=== PATIENT | male | born 1965 | race Caucasian/White ===

== ENCOUNTER 2018-06-28 22:22 | Emergency (ER) | payer OTHER ==
[2018-06-28] MEDS ORDERED: NS 1,000 ML IV ONE (23:11)
--- NOTE | 2018-06-28 23:16 | EDPHY ---
General - History Smoking Status: Never smoked Time Seen by Provider: 06/28/18 23:06 Narrative: ED PA DICTATION I evaluated and participated in the management of the patient. I also evaluated the patient independently. My co-signature indicates that I have reviewed this chart and I agree with the findings and plan of care as documented. My personal H&P findings include: 52-year-old male with history of HIV presents with fever and tachycardia. Since he has been here he has received IV fluid, pain meds, Tylenol. He feels much better with IV fluids and his vital signs are now normal. We have not discovered any source of infection. I have offered him admission to the hospital, however he declines. He is able to return if he is worse in any way. I have explained that we have checked blood cultures and do not have the results back yet. He believes he can follow up with his primary care doctor in the next few days. I have given him strict return precautions. (Melody Bell) CHIEF COMPLAINT: Fever, back pain HISTORY OF PRESENT ILLNESS: Patient presents by private vehicle with complaints of fever and back pain. He states that he was moving some heavy objects and furniture on Friday. The following day he felt "like I tweaked my back," 1st noticing some left-sided back pain. It is left lower back pain. It has been constant duration. Later that day on Friday, he developed a fever and chills. He reports a T-max of a 103. He has been taking ibuprofen with intermittent relief. He has ongoing left flank pain with no abdominal pain. No cough. He does associate this with headache but has no neck pain or stiffness. No sore throat. No rash. No urinary complaints. He is HIV positive with reportedly undetectable viral load and normal cell counts recently. No other associated complaints or modifying factors. REVIEW OF SYSTEMS: 10 systems were reviewed and negative with the exception of the elements mentioned in the history of present illness. PCP: [facility] SPECIALISTS: Infectious disease, Dr. Kadeem Mcmanus in [place] PAST MEDICAL HISTORY: HIV, herpes, low testosterone, BPH PAST SURGICAL HISTORY: No recent surgical history SOCIAL HISTORY: Lives independently. FAMILY HISTORY: Noncontributory EXAMINATION: General Appearance: Alert, no distress. Conversing in full sentences. Well appearing. Head: normocephalic, atraumatic Eyes: Pupils equal and round, no conjunctival pallor or injection ENT, Mouth: Mucous membranes moist Neck: Normal inspection, supple, non-tender Respiratory: Lungs are clear to auscultation. No wheezing, rhonchi or crackles Cardiovascular: Regular rate and rhythm. No murmur. Gastrointestinal: Abdomen is soft and nontender. No tympany rigidity. No guarding. Moderate left CVA tenderness. No distension. No palpable mass Back: non-tender, no bony abnormalities Neurological: A&O, nonfocal, normal gait Skin: Warm and dry, no rash Extremities: Nontender, no pedal edema Psychiatric: Mood and affect normal DIFFERENTIAL DIAGNOSES: Including but not limited to sepsis, pneumonia, pyelonephritis, UTI, renal colic , ureteral colic, diverticulitis, colitis MDM: 11:15 p.m. Flank pain and fever with SIRS criteria met here by heart rate, temperature and respiratory rate. This was immediate recognize and lactic acid and blood cultures are pending. Despite his criteria, he is well-appearing and nontoxic. Laboratory studies are pending including urinalysis. I have added chest x- ray. IV fluid infusing. I have ordered pain medication and Tylenol. I discussed his SIRS criteria and presentation with Dr. Bell. 12:00 a.m. Urinalysis reveals mild protein urea. No leukocytosis or definite infection. Chest x-ray is unremarkable for infection. CBC does not reveal any leukocytosis. I have re-evaluated the patient this time. His pain is improved to 7/10. Temperature is down to 30 C. I discussed this with Dr. Bell, and we are in agreement that the patient warrants CT scan the abdomen pelvis given his history , vital signs and possibility of opportunistic infections. He has consented to the study. 1:00 a.m. Notified by radiologist Dr. Calvin. CT scan the abdomen pelvis does not reveal any acute abnormalities. I discussed this with Dr. Bell. She will re -evaluate the patient. 1:30 a.m. At this time Dr. Bell will assume care the patient. We have discussed his HPI examination as well as laboratory studies and CT findings. She will examine the patient and provide further care. Please see her note for final disposition. SUPERVISION: Patient was evaluated and examined in conjunction with my secondary supervising physician as documented. We have both examined the patient. (Bi Trejo) - Diagnostics Imaging Results: Imaging Impressions Abdomen CT 06/29/18 00:20 Impression: 1. No retroperitoneal inflammatory process or explanation for back pain and fever. Specifically, no evidence of hydronephrosis, perinephric fluid collection or paraspinal abscess. 2. Scattered sigmoid diverticula. 3. Degenerative disk and facet arthropathy at L4-L5 and L5-S1 contributing to at least moderate central canal narrowing at these 2 levels. The study was performed as an emergency on-call case and discussed by telephone with Bi Trejo PA-C, at 1:00 AM. The final interpretation is concordant with the original communication. - Objective Vital Signs: Initial Vital Signs Temperature (C) 101.8 F H 06/28/18 22:30 Heart Rate 102 H 06/28/18 22:30 Respiratory Rate 16 06/28/18 22:30 Blood Pressure 153/101 H 06/28/18 22:30 O2 Sat (%) 94 06/28/18 22:30 O2 Delivery Mode Room Air O2 (L/minute) 2 Allergies/Adverse Reactions: ceftazidime [From Tazidime] Allergy (Verified 06/28/18 22:27) dapsone Allergy (Verified 06/28/18 22:27) febuxostat [From Uloric] Allergy (Verified 06/28/18 22:27) gabapentin Allergy (Verified 06/28/18 22:27) Sulfa (Sulfonamide Antibiotics) Allergy (Verified 06/28/18 22:25) Home Medications: Medication Instructions Recorded Acyclovir 06/28/18 Descovy 200-25 mg Tablet 06/28/18 Intelence 06/28/18 Isentress 06/28/18 oxyCODONE CR 06/28/18 Laboratory Results: Laboratory Results 06/28/18 23:00 06/28/18 23:00 Microbiology Results: MICROBIOLOGY 06/28/18 23:30 Blood Blood Culture - Preliminary Gram Positive Cocci Clusters 06/28/18 23:30 Blood Blood Panel (PCR) - Final S.aureus Methicillin Suscept. 06/28/18 23:55 Blood Blood Culture - Preliminary Gram Positive Cocci Clusters Medications Given: Discontinued Medications Acetaminophen (Tylenol) 650 mg PO EDNOW ONE Stop: 06/28/18 23:21 Last Admin: 06/28/18 23:34 Dose: Not Given Sodium Chloride (Ns) 1,000 mls @ 0 mls/hr IV ONCE ONE; Wide Open PRN Reason: Protocol Stop: 06/28/18 23:12 Last Admin: 06/28/18 23:29 Dose: 1,000 mls Sodium Chloride (Ns) 1,000 mls @ 0 mls/hr IV ONCE ONE; Wide Open PRN Reason: Protocol Stop: 06/29/18 00:21 Last Admin: 06/29/18 00:20 Dose: 1,000 mls Morphine Sulfate (Morphine) 4 mg IVP EDNOW ONE Stop: 06/28/18 23:18 Last Admin: 06/28/18 23:29 Dose: 4 mg Departure - Departure Disposition: Home, Routine, Self-Care Clinical Impression: Flank pain, acute Low back strain Qualifiers: Encounter type: initial encounter Qualified Code(s): S39.012A - Strain of muscle, fascia and tendon of lower back, initial encounter Fever Qualifiers: Fever type: unspecified Qualified Code(s): R50.9 - Fever, unspecified Condition: Good Instructions: Muscle Strain (ED), Fever in Adults (ED), Lower Back Exercises ( ED) Additional Instructions: Please return to the emergency department if your worse in any way. We have not figured out the cause of your fever but I suspect there is a viral infection. I recommend that you follow up with your primary care doctor infectious disease in 1-2 days for recheck. We have sent blood cultures and if they returned positive we will call you at home. Referrals: Scott Peterson MD [[facility] Primary Care Provider] - As per Instructions
[2018-06-28 23:19] LABS: PLATELET COUNT 184 10^3/uL (150-400)
[2018-06-28] MEDS ORDERED: ACETAMINOPHEN 325 MG TAB PO ONE (23:20)
[2018-06-28 23:29] LABS: INR 0.99 (0.83-1.16); PROTIME(PATIENT) 13.3 SEC (12.0-15.0)
[2018-06-29] MEDS ORDERED: NS 1,000 ML IV ONE (00:20)
[2018-06-29] MEDS ORDERED: IOPAMIDOL (ISOVUE-300) 100 ML BTL ONE (00:29)
[2018-06-29 01:59] VITALS: BP 145/91
== END 2018-06-29 01:59 | disposition home or self-care (01) ==
DX: S39.012A Strain of muscle, fascia and tendon of lower back, initial encounter (principal); X50.0XXA Overexertion from strenuous movement or load, initial encounter; Y93.E9 Activity, other interior property and clothing maintenance; Y99.8 Other external cause status; R10.9 Unspecified abdominal pain; R50.9 Fever, unspecified; E86.9 Volume depletion, unspecified; Z21 Asymptomatic human immunodeficiency virus [HIV] infection status
CPT/HCPCS: 71046; 74177; 96361; 96374; 99285; J2270; Q9967

== ENCOUNTER 2018-06-29 15:45 | Inpatient (IN) | payer OTHER ==
--- NOTE | 2018-06-29 16:05 | EDPHY ---
General Time Seen by Provider: 06/29/18 15:56 Narrative: CHIEF COMPLAINT: "I was asked to come back" HISTORY OF PRESENT ILLNESS: Patient presents to the emergency department by private vehicle with complaints of "I was asked to come back." I evaluated the patient last night with complaints of left flank pain. At the time he presented tachycardic and febrile. We immediately commence a sepsis workup with blood cultures, lactic acid, laboratory studies, chest x-ray and urinalysis. Lactic acid was normal, as were his remainder laboratory studies. Chest x-ray is clear. There was unremarkable. His vital signs normalized throughout the course of his stay here. His back pain significantly improved. He was offered admission but declined. He was discharged home. He states that he felt well all day until around 11:00 p.m. When his left flank pain return. He did take is normal pain medication at noon today as well as ibuprofen. He has been afebrile. No chest pain. No cough. No sore throat. No urinary complaints. He was notified by our charge nurse to return here as his blood cultures did return with gram- positive cocci in clusters, MSSA. He states that he is feeling better today other than mild pain. HIV positive with last viral load and CD4 count taken 1 year ago. No other associated complaints 5 factors. REVIEW OF SYSTEMS: 10 systems were reviewed and negative with the exception of the elements mentioned in the history of present illness. PCP: [facility] SPECIALISTS: Infectious disease, Dr. Kadeem Murphy PAST MEDICAL HISTORY: HIV positive, herpes simplex, low testosterone PAST SURGICAL HISTORY: No recent surgical history SOCIAL HISTORY: Lives independently. Nonsmoker. Occasional marijuana use. FAMILY HISTORY: Noncontributory EXAMINATION: General Appearance: Alert, no distress. Well appearing. Ambulatory and conversing in full sentences. Head: normocephalic, atraumatic Eyes: Pupils equal and round, no conjunctival pallor or injection ENT, Mouth: Mucous membranes moist Neck: Normal inspection, supple, non-tender Respiratory: Lungs are clear to auscultation Cardiovascular: Regular rate and rhythm Gastrointestinal: Abdomen is soft and nontender no tympany rigidity. No guarding. No mass. Bowel sounds present all 4 quadrants Back: Mild left lower back soft tissue tenderness. No midline tenderness. No crepitus or deformity. Neurological: A&O, nonfocal, normal gait Skin: Warm and dry, no rash. No cellulitis, abscess or skin changes overlying the left flank pain. Extremities: Nontender, no pedal edema Psychiatric: Mood and affect normal DIFFERENTIAL DIAGNOSES: Including but not limited to bacteremia, sepsis, UTI, pyelonephritis, renal calculus, renal colic, ureteral colic MDM: 4:00 p.m. Bacteremia with 2 positive blood cultures with gram-positive cocci in clusters, MSSA. The patient does have mild flank pain but he is well-appearing. Nontoxic. Vital signs are within normal limits. He does not meet SIRS criteria. He has not been on antibiotics since discharge home after declining admission. I will consult Infectious Disease. I discussed with Dr. Ross. 4:15 p.m. Case discussed with Dr. Juan Jose Velásquez. We have reviewed the case, and he has requested Daptomycin 6mg/kg every 24 hours. I have ordered this and clarified with pharmacy. We will 1st obtain a urine culture as this is the last culture that needs to be obtained. He has no chest pain. No abdominal pain. No urine complaints but no sore throat, cough or congestion. 4:20 p.m. Case discussed with hospitalist Dr. Ramirez. He will be admitted to his service. He is admitted in stable condition. He has consented to admission. Urine culture will 1st obtain and then daptomycin initiated. 5:25 p.m. Patient being transported to his room in stable condition. Daptomycin not yet started due to pending urine sample collection. SUPERVISION: Patient was independently examined, but I discussed the case with my secondary supervising physician Dr. Ross CONSULTATION: Infectious disease, Dr. Velásquez - History Smoking Status: Never smoked - Objective Vital Signs: Initial Vital Signs Temperature (C) 98.1 F 06/29/18 15:48 Heart Rate 92 06/29/18 15:48 Respiratory Rate 18 06/29/18 15:48 Blood Pressure 148/87 H 06/29/18 15:48 O2 Sat (%) 93 06/29/18 15:48 O2 Delivery Mode Room Air Allergies/Adverse Reactions: ceftazidime [From Tazidime] Allergy (Verified 06/29/18 15:47) dapsone Allergy (Verified 06/29/18 15:47) febuxostat [From Uloric] Allergy (Verified 06/29/18 15:47) gabapentin Allergy (Verified 06/29/18 15:47) Sulfa (Sulfonamide Antibiotics) Allergy (Verified 06/29/18 15:47) Home Medications: Medication Instructions Recorded Acyclovir [Zovirax 400 mg (*)] 400 mg PO BID 06/28/18 Emtricitabine/Tenofov Alafenam 1 tab PO HS 06/28/18 [Descovy 200-25 mg Tablet] Etravirine [Intelence] 200 mg PO BID 06/28/18 Raltegravir [Isentress] 400 mg PO BID 06/28/18 oxyCODONE IR [Oxycodone Ir (*)] 10 mg PO QID 06/28/18 Androgel 1.62% 1 [place] TP DAILY 06/29/18 Herbals/Supplements -Info Only 1 ea PO HS 06/29/18 Ibuprofen [Motrin (*)] 600 mg PO BID 06/29/18 Laboratory Results: Laboratory Results 06/29/18 16:25 06/29/18 16:25 06/29/18 06/29/18 06/29/18 16:25 16:25 16:25 WBC 8.93 10^3/uL 10^3/uL (3.80-9.50) RBC 3.65 10^6/uL L 10^6/uL (4.40-6.38) Hgb 12.5 g/dL L g/dL (13.7-17.5) Hct 35.2 % L % (40.0-51.0) MCV 96.4 fL fL (81.5-99.8) MCH 34.2 pg H pg (27.9-34.1) MCHC 35.5 g/dL g/dL (32.4-36.7) RDW 12.4 % % (11.5-15.2) Plt Count 185 10^3/uL 10^3/uL (150-400) MPV 11.1 fL fL (8.7-11.7) Neut % (Auto) 77.9 % H % (39.3-74.2) Lymph % (Auto) 12.2 % L % (15.0-45.0) [place] % (Auto) 9.1 % % (4.5-13.0) Eos % (Auto) 0.3 % L % (0.6-7.6) Baso % (Auto) 0.2 % L % (0.3-1.7) Nucleat RBC Rel Count 0.0 % % (0.0-0.2) Absolute Neuts (auto) 6.95 10^3/uL H 10^3/uL (1.70-6.50) Absolute Lymphs (auto) 1.09 10^3/uL 10^3/uL (1.00-3.00) Absolute Monos (auto) 0.81 10^3/uL H 10^3/uL (0.30-0.80) Absolute Eos (auto) 0.03 10^3/uL 10^3/uL (0.03-0.40) Absolute Basos (auto) 0.02 10^3/uL 10^3/uL (0.02-0.10) Absolute Nucleated RBC 0.00 10^3/uL 10^3/uL (0-0.01) Immature Gran % 0.3 % % (0.0-1.1) Immature Gran # 0.03 10^3/uL 10^3/uL (0.00-0.10) Sodium 136 mEq/L mEq/L (135-145) Potassium 3.5 mEq/L mEq/L (3.3-5.0) Chloride 100 mEq/L mEq/L (97-110) Carbon Dioxide 24 mEq/l mEq/l (22-31) Anion Gap 12 mEq/L mEq/L (8-16) BUN 12 mg/dL mg/dL (7-23) Creatinine 1.2 mg/dL mg/dL (0.7-1.3) Estimated GFR > 60 Glucose 194 mg/dL H mg/dL (70-100) Calcium 8.9 mg/dL mg/dL (8.5-10.4) Absolute Lymphocytes Pending Comments Pending % CD3 Cells Pending Absolute CD3 Count Pending % CD4 Cells Pending Absolute CD4 Count Pending T-Help/Suppress Ratio Pending % CD8 Cells Pending Absolute CD8 Count Pending Medications Given: Discontinued Medications Daptomycin 462.666 mg/ Sodium (Chloride) 109.2533 mls @ 200 mls/hr IV DAILY ONE PRN Reason: Protocol Stop: 06/29/18 16:53 Last Admin: 06/29/18 17:26 Dose: 109.2533 mls Departure - Departure Disposition: [facility] Inpatient Acute Clinical Impression: Bacteremia Acute left-sided low back pain Qualifiers: Sciatica presence: without sciatica Qualified Code(s): M54.5 - Low back pain Condition: Good
[2018-06-29] MEDS ORDERED: NS IV ONE (16:21)
[2018-06-29] MEDS ORDERED: DAPTOMYCIN IV ONE (16:21)
[2018-06-29] MEDS ORDERED: ACETAMINOPHEN 325 MG TAB PO PRN (16:43)
[2018-06-29] MEDS ORDERED: oxyCODONE IR 5 MG TAB PO PRN (16:43)
[2018-06-29] MEDS ORDERED: ONDANSETRON DISINTEGRATING 4 MG TAB PO PRN (16:43)
[2018-06-29 16:47] LABS: PLATELET COUNT 185 10^3/uL (150-400)
--- NOTE | 2018-06-29 17:21 | PDGENHP ---
History and Physical - Chief Complaint Acute fever - History of Present Illness Primary care provider: Dr. Mcmanus in [place] HPI: 52-year-old male presenting with acute fever characterized as a documented temperature of a 103 degrees F with associated chills, general malaise, pain located in the left lumbar/sacral spine/buttock. Patient reports that the onset of his pain was approximately 1 week ago after he was doing some heavy lifting, and he felt like he "tweaked" his back. Approximately 24 hr after the onset of pain, he began experiencing the aforementioned fever chills and general malaise. Duration was persistent thereafter. He sought medical attention at our emergency department yesterday, underwent blood cultures and workup, and his blood cultures resulted MSSA today. He was called back to the emergency department for further evaluation. It should be noted that prior to his onset of back pain, approximately 1.5 weeks ago, he experienced a small right foot dorsal surface wound which was Kyle shallow ulceration without any particular surrounding erythema. The area did not appear to heal over the subsequent 1.5 weeks. He has been adherent to all of his HIV medications. History Information - Allergies/Home Medication List Allergies/Adverse Reactions: ceftazidime [From Tazidime] Allergy (Verified 06/29/18 15:47) dapsone Allergy (Verified 06/29/18 15:47) febuxostat [From Uloric] Allergy (Verified 06/29/18 15:47) gabapentin Allergy (Verified 06/29/18 15:47) Sulfa (Sulfonamide Antibiotics) Allergy (Verified 06/29/18 15:47) Home Medications: Acyclovir 06/28/18 [Last Taken Unknown] Descovy 200-25 mg Tablet 06/28/18 [Last Taken Unknown] Intelence 06/28/18 [Last Taken Unknown] Isentress 06/28/18 [Last Taken Unknown] oxyCODONE CR 06/28/18 [Last Taken Unknown] I have personally reviewed and updated: family history, medical history, social history, surgical history - Past Medical History Additional medical history: HIV diagnosed in 1986, was not on continuous anti- retroviral medications until 1998 when he developed AIDS with PJP, requiring antibiotics, initiation of anti-retroviral, last CD4 count was approximately 1 year ago and was reportedly 800 with an undetectable viral load - Surgical History Additional surgical history: Planter's wart removal from foot 10 years ago - Family History Additional family history: No family history of any back issues or any chronic immunosuppressive disorders - Social History Smoking Status: Never smoked Alcohol Use: None Drug Use: Marijuana Additional social history: Patient recently relocated from [place] to [place] Review of Systems Review of Systems: ROS: 10pt was reviewed & negative except for what was stated in HPI & below Constitutional: Reports: chills, fever, malaise Muscolosketal: Reports: back pain Skin: Reports: other (Foot wound) Physical Exam Physical Exam: Temp Pulse Resp BP Pulse Ox 36.7 C 92 18 148/87 H 93 06/29/18 15:48 06/29/18 15:48 06/29/18 15:48 06/29/18 15:48 06/29/18 15:48 Constitutional: no apparent distress, appears nourished, not in pain Eyes: PERRL, anicteric sclera, EOMI Ears, Nose, Mouth, Throat: moist mucous membranes, hearing normal, ears appear normal, no oral mucosal ulcers, No oral thrush Cardiovascular: regular rate and rhythym, no murmur, rub, or gallop, No edema Respiratory: no respiratory distress, no rales or rhonchi, clear to auscultation Gastrointestinal: normoactive bowel sounds, soft, non-tender abdomen, no palpable masses, No hepatosplenomegally Skin: other (Shallow ulcerated 2 cm wound on the dorsal surface of his right foot without any surrounding erythema) Musculoskeletal: other (Tenderness over the left lumbar/sacral area without any tenderness in the adjacent SI joint or in the superior lumbar spine) Neurologic: AAOx3, sensation intact bilaterally, No weakness Psychiatric: interacting appropriately, not anxious, not encephalopathic, thought process linear Lymph, Heme, Immunologic: other (Palpable, nontender 3 cm lymph nodes bilateral submandibular area without any additional anterior cervical lymphadenopathy, nontender) Lab Data & Imaging Review 06/29/18 16:25 06/29/18 16:25 WBC 8.93 10^3/uL (3.80-9.50) 06/29/18 16:25 RBC 3.65 10^6/uL (4.40-6.38) L 06/29/18 16:25 Hgb 12.5 g/dL (13.7-17.5) L 06/29/18 16:25 Hct 35.2 % (40.0-51.0) L 06/29/18 16:25 MCV 96.4 fL (81.5-99.8) 06/29/18 16:25 MCH 34.2 pg (27.9-34.1) H 06/29/18 16:25 MCHC 35.5 g/dL (32.4-36.7) 06/29/18 16:25 RDW 12.4 % (11.5-15.2) 06/29/18 16:25 Plt Count 185 10^3/uL (150-400) 06/29/18 16:25 MPV 11.1 fL (8.7-11.7) 06/29/18 16:25 Neut % (Auto) 77.9 % (39.3-74.2) H 06/29/18 16:25 Lymph % (Auto) 12.2 % (15.0-45.0) L 06/29/18 16:25 [place] % (Auto) 9.1 % (4.5-13.0) 06/29/18 16:25 Eos % (Auto) 0.3 % (0.6-7.6) L 06/29/18 16:25 Baso % (Auto) 0.2 % (0.3-1.7) L 06/29/18 16:25 Nucleat RBC Rel Count 0.0 % (0.0-0.2) 06/29/18 16:25 Absolute Neuts (auto) 6.95 10^3/uL (1.70-6.50) H 06/29/18 16:25 Absolute Lymphs (auto) 1.09 10^3/uL (1.00-3.00) 06/29/18 16:25 Absolute Monos (auto) 0.81 10^3/uL (0.30-0.80) H 06/29/18 16:25 Absolute Eos (auto) 0.03 10^3/uL (0.03-0.40) 06/29/18 16:25 Absolute Basos (auto) 0.02 10^3/uL (0.02-0.10) 06/29/18 16:25 Absolute Nucleated RBC 0.00 10^3/uL (0-0.01) 06/29/18 16:25 Immature Gran % 0.3 % (0.0-1.1) 06/29/18 16:25 Immature Gran # 0.03 10^3/uL (0.00-0.10) 06/29/18 16:25 Sodium 136 mEq/L (135-145) 06/29/18 16:25 Potassium 3.5 mEq/L (3.3-5.0) 06/29/18 16:25 Chloride 100 mEq/L (97-110) 06/29/18 16:25 Carbon Dioxide 24 mEq/l (22-31) 06/29/18 16:25 Anion Gap 12 mEq/L (8-16) 06/29/18 16:25 BUN 12 mg/dL (7-23) 06/29/18 16:25 Creatinine 1.2 mg/dL (0.7-1.3) 06/29/18 16:25 Estimated GFR > 60 06/29/18 16:25 Glucose 194 mg/dL (70-100) H 06/29/18 16:25 Calcium 8.9 mg/dL (8.5-10.4) 06/29/18 16:25 Visualized and Interpreted Chest x-ray results: Yes Chest X-Ray results: no infiltrate Assessment & Plan Assessment: 52-year-old male presents with acute MSSA bacteremia in the setting of HIV Plan: 1. MSSA Bacteremia. Acute, new problem this provider, further workup indicated. Potential etiology is right foot wound and potential spreading is left lumbar sacral area -reviewed outside records including 06/28/2018 emergency department report by Dr. Melody hung the, she indicated that admission was offered, patient declined, CT imaging from that date demonstrated no intra-abdominal abscess, lumbar spine arthropathy -discussed with Bi Trejo, emergency department provider, he reports to me that he has discussed with Dr. Juan Jose Velásquez who has recommended weight based daptomycin, will continue daptomycin and appreciate Infectious Disease consultation tomorrow -get lumbar and sacral MRI given potential seeding, given the temporal association -hold on repeating blood cultures until patient has received at least 24 hr of appropriate antibiotic therapy and we have evaluated for any additional harbored source 2. Hyperglycemia. Acute, unclear whether this is secondary to stress response from bacteremia, check hemoglobin A1c 3. HIV. Continue home anti-retroviral medications, will check CD4 count Diet. Regular Prophylaxis. Moderate risk patient, SCDs Code. Full per patient, his partner Marshall Rogers is his MD POA Disposition. Anticipated discharge uncertain this time, anticipated length stay is greater than 48 hr for reasonable medical necessity including new diagnosis of bacteremia requiring additional workup as outlined above.
[2018-06-29] MEDS ORDERED: LACTULOSE 20 GM/30 ML UDCUP PO PRN (17:27)
[2018-06-29] MEDS ORDERED: MAGNESIUM HYDROXIDE 30 ML UDCUP PO PRN (17:27)
[2018-06-29] MEDS ORDERED: BISACODYL 10 MG SUPP PR PRN (17:27)
[2018-06-29] MEDS ORDERED: METHOCARBAMOL 500 MG TAB PO PRN (17:27)
[2018-06-29] MEDS ORDERED: POLYETHYLENE GLYCOL 3350 17 GM PKT PO PRN (17:27)
[2018-06-29] MEDS ORDERED: GADOBUTROL 10 ML VIAL IVP ONE (18:36)
[2018-06-29] MEDS: oxyCODONE IR 5 MG TAB PO SCH (19:59)
[2018-06-29] MEDS: NS 1,000 ML IV SCH (21:00)
[2018-06-29] MEDS ORDERED: Herbals/Supplements -Info Only PO SCH (21:00)
[2018-06-29] MEDS ORDERED: ACYCLOVIR 400 MG TAB PO SCH (21:00)
[2018-06-29] MEDS ORDERED: RALTEGRAVIR 400 MG TAB PO SCH (21:00)
[2018-06-29] MEDS: ETRAVIRINE PO SCH (21:39)
[2018-06-29] MEDS: ACYCLOVIR 400 MG TAB PO SCH (21:39)
[2018-06-29] MEDS: SENNOSIDES/DOCUSATE SODIUM TAB PO SCH (21:39)
[2018-06-29] MEDS: RALTEGRAVIR 400 MG TAB PO SCH (21:39)
[2018-06-29] MEDS: Emtricitabine/Tenofov Alafenam [Descovy 200-25 Mg Tablet] PO SCH (21:39)
[2018-06-29] MEDS: IBUPROFEN 600 MG TAB PO PRN (21:41)
[2018-06-30] MEDS: CALCIUM CARBONATE 500 MG CHEWABLE TAB PO PRN ×2 (00:29→12:51)
[2018-06-30] MEDS: oxyCODONE IR 5 MG TAB PO SCH ×4 (03:54→22:06)
[2018-06-30 05:01] LABS: PLATELET COUNT 185 10^3/uL (150-400)
--- NOTE | 2018-06-30 05:12 | PDMN ---
Medical Necessity Medical necessity: Pt meets IP criteria per & MCG MG-SIC (Systemic or Infectious Condition); est los >2 mn for eval/tx of bacteremia possibly r/t R foot wound w/potential spreading to L lumbar sacral area; admit for further workup/monitoring, ID consult & abx; hx HIV; per H&P & order 06/29/18
[2018-06-30] MEDS: IBUPROFEN 600 MG TAB PO PRN ×3 (07:43→22:28)
--- NOTE | 2018-06-30 09:16 | WOCRNPDOC ---
WOCRN Advanced Assessment Note - Skin Integrity Problem, Advanced Assess Right Dorsal Foot Dressing Type: Allevyn Life Dressing Description: Clean/Dry, Intact Exudate Amount: None Integumentary Issue Intervention: Dressing Changed, Dressing Initialed & Dated Lilliam Wound Tissue: Erythema (to 1 cm lilliam wound), Swollen Lilliam Wound Swelling: Mild Wound Bed Constitution: Adhered Slough (100%) Site Measurement - Head-to-Toe Length X Width X Depth (cm): 1.3x0.8x0.2 Skin Integrity Problem Comment: Unknown etiology per patient. Stalled full thickness wound approx 10 days old. Cleaned with ns and gauze. Applied iodosorb gel to see if slough would soften though there is no drainage. Will recheck on . Conservative bedside debridment may be indicated if autolityc debridement is unsuccessful. Patient may need follow up at outpatient wound healing center if the wound doesnt begin to improve.
[2018-06-30] MEDS: ACYCLOVIR 400 MG TAB PO SCH ×2 (09:20→22:08)
[2018-06-30] MEDS: ETRAVIRINE PO SCH ×2 (09:20→22:08)
[2018-06-30] MEDS: RALTEGRAVIR 400 MG TAB PO SCH ×2 (09:21→22:07)
[2018-06-30] MEDS: SENNOSIDES/DOCUSATE SODIUM TAB PO SCH ×2 (09:24→22:10)
--- NOTE | 2018-06-30 10:16 | ASMTCASEMG ---
Living Arrangements What is your living Answers: With Partner arrangement? Who do you live with? Type Of Residence What kind of residence do Answers: House you live in? Discharge Plan Comments Coordination Status Comments Notes: Patient is a 52yo single male who presents with acute MSSA bacteremia in the setting of HIV. He also has hyperglycemia, acute. Patient's partner Marshall is his MDPOA. PT and wound care ordered. D/C needs TBD. CM will follow. Date Signed: 06/30/2018 10:16 AM Electronically Signed By:Natalee Schwarz LCSW
--- NOTE | 2018-06-30 11:07 | GCON ---
INFECTIOUS DISEASE CONSULTATION DATE OF CONSULTATION: 06/30/2018 REFERRING PHYSICIAN: Jordan Ramirez MD REASON FOR CONSULTATION: MSSA bacteremia. HISTORY OF PRESENT ILLNESS: The patient is a 52-year-old male with a past medical history of HIV, la st CD4 count in the 800 range with undetectable viral load approximately 1 year ago who I am asked to see in consultation for MSSA bacteremia. Patient describes developing a scrape over the right dorsa l aspect of his foot approximately 10 days ago. He does not know how this occurred and it was not pa rticularly bothersome. Last Friday, the patient was moving some furniture and sustained a low kezia k strain with pain on the left lower back. Later that day, he developed fever and rigors. This was associated with night sweats. He describes having worsening sciatica, which he typically has. He do es note that his left lower back appears inflamed on imaging previously. He was [facility] seen [facility] on 06/28/2018, at which point in time, blood cultures were obtained. Both set s obtained on that day now have shown growth of MSSA. Based on the positive culture findings, he was contacted and advised to return to the hospital for further evaluation. Patient was given a dose of daptomycin yesterday given concerns about preceding cephalosporin allergy. Imaging was obtained of the pelvis and lumbar spine, which showed abnormal edema and enhancement within the left paraspinous musculature at L4-5 with edema and enhancement of the L4-5 facet joint; abnormal enhancement was also present in the left iliopsoas musculature. There was suggestion of a 12 mm intramuscular abscess la teral to the affected facet joint. Epidural inflammatory change was also noted from L4-S1 without di screte abscess being noted. No evidence of osteomyelitis or diskitis present. Patient has not exper ienced lower extremity weakness. He does not note bowel or bladder retention/incontinence. Given [facility] above findings, I am now asked to assist in his ongoing management. PAST MEDICAL HISTORY: HIV followed by Dr. Mcmanus in [place] with diagnosis in 1986; opportunistic infection due to PCP in 1998; no other opportunistic infection; patient notes last CD4 count in the 8 00 range with undetectable viral load approximately 1 year ago, gout, chronic low back pain after fal l. PAST SURGICAL HISTORY: Unremarkable. CURRENT MEDICATIONS: Daptomycin 462 mg IV x1, acyclovir 400 mg orally twice daily, Tums as needed, M otrin as needed, Robaxin as needed, Descovey p.o. daily, etravirine 200 mg b.i.d., AndroGel applied d aily, Isentress 400 mg p.o. b.i.d. ALLERGIES: Ceftazidime associated with fever and rash, sulfonamides associated with fever and rash, Neurontin, Uloric; patient notes he has tolerated penicillins without difficulty. SOCIAL HISTORY: Patient does not smoke. Does not drink alcohol. Occasional marijuana use. No rece nt travel. PET dogs at home. FAMILY HISTORY: Gout. REVIEW OF SYSTEMS: Outside that noted in the HPI, the remainder of 10-system review is unremarkable. PHYSICAL EXAMINATION: VITAL SIGNS: Temperature maximum 39.4, heart rate 76, respiratory rate 12, bl ood pressure 110/62, oxygen saturation 87% on room air. GENERAL: Patient is well nourished, well de veloped in no acute distress. He appears nontoxic. HEENT: There is no scleral icterus, conjunctiva l injection, or conjunctival petechiae. Oropharynx shows moist mucous membranes with dentition in fa ir repair. There is no nasal discharge. No sinus tenderness. NECK: Supple without palpable lympha denopathy or thyromegaly. CHEST: Clear to auscultation bilaterally without adventitious sounds. Re spiratory effort is normal. CARDIOVASCULAR: Regular rate and rhythm without murmurs, gallops, rubs. ABDOMEN: Soft, nontender, nondistended. No palpable organomegaly. Bowel sounds are present. KEZIA K: There is point tenderness along the lumbosacral spine and along the paraspinous musculature on th e left-hand side of the lumbosacral spine. MUSCULOSKELETAL: There is no cyanosis, clubbing, or naya a. There is no pain with range of motion of either hip. SKIN: There is a quarter-sized shallow ulc eration present over the dorsal aspect of the right foot without surrounding cellulitis. There are n o stigmata of endocarditis present. Skin is warm and moist to touch. NEUROLOGIC: Patient is alert and interacts appropriately with examiner. Cranial nerves 2-12 are grossly intact. Sensation is katarina ssly intact. Muscle tone and bulk are normal. LYMPHATICS: No cervical or supraclavicular nodes. LABORATORY/IMAGING: White blood cell count 8.7, hematocrit 31.8, platelets 185, neutrophils 68%, lym phocytes 19%. Serum creatinine 1.2. AST 35, ALT 53, bilirubin 0.9, alkaline phosphatase 88, albumin 3.1. Hemoglobin A1c 5.2. Blood cultures on 06/28/2018, 2 of 2 with MSSA. Urine culture on 018, is pending. CT of the abdomen pelvis shows no evidence of hydronephrosis or perinephric fluid collection. Chest x-ray is normal. IMPRESSION: 1. Methicillin-sensitive Staphylococcus aureus bacteremia likely associated with right foot wound wi th secondary seeding of L4-5 facet joint and paraspinous musculature with small intramuscular abscess by imaging: Based on patient's tolerance of penicillin derivatives, will discontinue daptomycin and begin nafcillin 2 g intravenous q.4 hours. Will obtain echocardiogram to assess for endocarditis. Will review imaging with Neurosurgery to assess for any surgical intervention, although I suspect thi s will be primarily managed medically. Follow repeat blood cultures over time to establish clearance of bacteremia. Side effects of nafcillin, including potential for allergic reactions, such as rash or interstitial nephritis discussed with patient today. 2. Human immunodeficiency virus: Well controlled on anti-retroviral therapy. We will continue thes e during his hospital stay. RECOMMENDATIONS: 1. Nafcillin 2 g IV q.4 hours. 2. Discontinue daptomycin. 3. Transthoracic echocardiogram. 4. Repeat blood cultures in a.m. to assess for clearing of bacteremia. 5. Will review imaging further with Neurosurgical service. 6. Continue current anti-retroviral therapy. Thank you for this consultation. We will continue to follow patient with you. /[id number]/MODL
[2018-06-30] MEDS: NAFCILLIN SODIUM 2 GM in D5W 100 ML IV SCH ×4 (11:19→22:07)
--- NOTE | 2018-06-30 12:37 | GCON ---
CHIEF COMPLAINT: 1. MSSA bacteremia. 2. Back pain with bilateral lower extremity pain. HISTORY OF PRESENT ILLNESS: The patient is a 52-year-old, HIV-positive male, with a last CD4 count in the 800 range with an undetectable viral load approximately 1 year ago, whom we were asked from Infectious Disease, Dr. Faria, to see him for some back findings on an MRI suggestive of possible infection. Patient describes developing a scrape over the right dorsal aspect of his foot approximately 10 days ago. He did have a fall approximately a week ago as well. He was moving some furniture this last Friday. He did sustain a low back strain and had some pain in his left lower back. Later that day, he developed some fever and rigors. This was associated with some night sweats. He describes having some worsening sciatica, which is more than he typically has. He was seen in the emergency department on 06/28/2018, at which point, blood cultures were obtained. Both sets obtained show growth of MSSA. He had an MRI of his lumbar spine which showed enhancement of the L4-5 facet joint. Abnormal enhancement was also seen in the left iliopsoas musculature. There was suggestion of a 12 mm intramuscular abscess lateral to the affected facet joint. We were consulted from Internal Medicine and ID to see and evaluate the patient. The patient was seen and evaluated both by myself and Dr. Dallas. The patient denies any lower extremity weakness. No upper extremity complaints of numbness, tingling, or pain. He denies any chest pain or shortness of breath. No abdominal complaints. No complaints. PAST MEDICAL HISTORY: 1. HIV positive, followed by Dr. Mcmanus in [place], was diagnosed in 1986. He did have an opportunistic infection due to PCP in 1998. The patient notes a CD4 count in the 800 range and an undetectable viral load. 2. Gout. 3. Chronic low back pain. PAST SURGICAL HISTORY: Reviewed and noncontributory. CURRENT MEDICATIONS: Daptomycin, acyclovir, Tums, Motrin, Robaxin, Descovy, etravirine, AndroGel, and Isentress. ALLERGIES: 1. cefidime. 2. Dapsone. 3. Uloric. 4. Gabapentin. 5. Sulfa. SOCIAL HISTORY: The patient lives in [place]. His life partner lives in [place] with him. He does not smoke. He does not drink any alcohol. Uses occasional marijuana. No recent travel. FAMILY HISTORY: Consistent with gout. REVIEW OF SYSTEMS: Complete 10-point review of systems was negative, otherwise noted in HPI. PHYSICAL EXAM: GENERAL: This is an awake, alert, oriented male in no acute distress. VITAL SIGNS: Most recent vital signs are blood pressure 110/62, map is 78, 76 heart rate, 12 respirations, 87% on room air, temperature 39.4. HEENT : Head is normocephalic, atraumatic. Pupils are equal, round, reactive to light. EOMI is intact. Full visual sandoval by confrontation. Ears are patent. Nose is patent. NECK: Soft and supple. No midline tenderness. Full range of motion in flexion, extension, lateral bending, rotation. RESPIRATORY/CARDIAC : Deferred. ABDOMEN: Soft, nontender. No peritoneal signs. AND RECTAL: Deferred. NEURO: Patient is awake, alert, oriented to name, place, location, date, time, and situation. Memory is intact to immediate, past, and current events. Speech: No aphasia, dysarthria, dysphonia. Cranial nerves 2-12 grossly intact. Motor: Patient has 5/5 strength in all muscle groups of bilateral upper and lower extremities to include deltoids, biceps, triceps, brachioradialis, wrist flexors/extensors, floor renovator, intrinsic fingers, iliopsoas, quadriceps, hamstring, plantar flexion, dorsiflexion, EHL testing. Sensation is grossly intact to light touch throughout all dermatome distributions upper extremities. Negative straight leg-raise. Negative JENNIFER test. Reflexes of biceps, triceps, brachioradialis, knee jerk and ankle jerk are 2+/4. Toes are downgoing bilaterally. Parr's negative. Babinski negative. No evidence of clonus. MEDICAL DECISION MAKING/DIAGNOSTIC STUDIES: Laboratory tests obtained 2017, show a white count of 8.69 with an H and H of 11.2 and 31.8 with a platelet count of 185. Chemistry on 06/30/2018: Sodium 138, potassium 3.9, chloride 104, CO2 was 26, BUN 11, creatinine 1.2, and a glucose of 86. MRI of the lumbar spine obtained 06/29/2018, at 1716 shows an abnormal appearing left facet joint at L4-5 with joint effusion, posterior cortical erosion changes originating from this focus. There is abnormal intermuscular edema, enhancement of the posterior left paraspinal musculature as well. Small intramuscular abscess formation was noted. There is also abnormal inflammation of the epidural space and lumbar canal from L4 through S1 without discrete abscess. There are degenerative features within the lower lumbar spine as well. There is broad-based annular disk bulge acquired central canal stenosis, severe bilateral neural foraminal stenosis at L4-5 with a mild annular disk bulge noted centrally at L5-S1. Pelvis MRI per report on 06/29/2018, shows abnormal edema enhancement with the left paraspinous musculature at the L4-5 level with abnormal facet joint. There is also evidence of abnormal enhancement of the left iliopsoas muscle within the left hemipelvis suggesting inflammatory etiology as well. IMPRESSION: 1. Back pain with sciatica. 2. Methicillin-sensitive Staphylococcus aureus bacteremia. 3. History of human immunodeficiency virus, well controlled with CD4 count and an undetectable viral load. 4. Abnormal appearing left facet joint at L4-5 with joint effusion noted, small intramuscular abscess formation with abnormal inflammation of the epidural space in the lumbar canal from L4 through S1. PLAN/DISCUSSION: The patient is a 52-year-old male who is HIV positive, has a CD4 count in 800s as well as an undetectable viral load. He was seen both by myself and Dr. Dallas. We will review his images together and develop a plan accordingly. It is unlikely we will recommend any sort of surgical intervention at this time and we will likely recommend further and repeat imaging in a timely fashion to evaluate this abnormal collection noted at the L4 -5 level. The patient has a normal motor exam, normal strength. He has no numbness or tingling, but does have some pain in bilateral buttocks, down the hamstrings, in the calf but no foot involvement. He has no upper extremity complaints. Recommend conservative management at this point. The patient understands and agrees. /[id number]/MODL MTDD
--- NOTE | 2018-06-30 15:30 | ECHO ---
[email or web address] [address] [address] Main: [phone] Fax: Transthoracic Echocardiogram Name: BALDEV BROWER MR#: [id number] Study Date: 06/30/2018 Study Time: 11:19 AM Date of : 1965 Age: 52 year(s) Height: 170.2 cm (67 in.) Weight: 77.11 kg (170 lb.) BSA: 1.89 m2 Gender: Male Examination: Echo Indication: MSSA bacteremia/assess valve function Image Quality: Contrast: Requested by: Vincent Faria BP: 110 mmHg/62 mmHg Heart Rate: Rhythm: Indication: MSSA bacteremia/assess valve function Procedure Staff Underwriter Solicitation Director: Naima Tolbert RDCS Reading Physician: Sukhdev Dodson MD Requesting Provider: Conclusions: Normal global systolic LV function. The ejection fraction is estimated to be 70-75 %. Mild mitral valve regurgitation is present. Mild tricuspid regurgitation is present. Measurements: Chambers Valvular Assessment AV/MV Valvular Assessment TV/PV Normal Normal Normal Name Value Range Name Value Range Name Value Range Ao Mirela (MM): 3.4 cm (2.2 cm-3.7 AV Vmax: 1.67 m/s (1 m/s-1.7 TR Vmax: 2.52 mm/s ( - ) cm) m/s) TR PGmax: 25 mmHg ( - ) IVSd (2D): 0.9 cm (0.6 cm-1.1 AV meanP mmHg ( - ) syst. PAP: 30 mmHg ( - ) cm) MV E Vmax: 0.99 m/s ( - ) LVDd (2D): 5.2 cm (4.2 cm-5.9 MV A Vmax: 0.75 m/s ( - ) cm) MV E/A: 1.32 ( - ) LVDs (2D): 3.1 cm (2.1 cm-4 cm) LVPWd (2D): 0.9 cm (0.6 cm-1 cm) LVOTd 2.3 cm 2.3 cm mm LVEF (BP): 76 % (>=55 %) EF Range: 70-75 % Continued Measurements: Chambers Valvular Assessment AV/MV Valvular Assessment TV/PV Name Value Name Value Name Value LADs: 4.6 cm MV E' Septal: 0.07 m/s CVP (est.): 5 mmHg LADs Lon.8 cm MV E/E' Septal: 13.90 LA Area: 21.6 cm2 MV E/E' Lateral: 9.00 Patient: BALDEV BROWER Study Date: 06/30/2018 Page 1 of 2 11:19 AM LA Volume: 64 ml LA Volume Index: 33.9 ml/m2 Additional Vessels Name Value Ao Ascendin.2 cm Findings: Left Ventricle: Normal size left ventricle. No LV hypertrophy. Normal global systolic LV function. The ejection fraction is estimated to be 70-75 %. No regional wall motion abnormality. Normal diastolic LV function. Right Ventricle: Normal size right ventricle. Left Atrium: The left atrium is normal in size. Right Atrium: The right atrium is normal in size. Mitral Valve: The mitral valve is normal in appearance and function. Mild mitral valve regurgitation is present. Aortic Valve: The aortic valve is normal in appearance and function. The aortic valve is tri-leaflet. Tricuspid Valve: The tricuspid valve is normal in appearance and function. Mild tricuspid regurgitation is present. RSVP is 30mmHG.. Pulmonic Valve: The pulmonic valve is normal in appearance and function. Aorta: The aorta is normal. Pericardium: No pericardial effusion. (No Signature Object) Patient: BALDEV BROWER Study Date: 06/30/2018 Page 2 of 2 11:19 AM [id number]
[2018-06-30] MEDS: NS 1,000 ML IV SCH (16:37)
--- NOTE | 2018-06-30 17:31 | HOSPPROG ---
Hospitalist Progress Note Assessment/Plan: * MSSA sepsis - source right foot wound -IV nafcillin * Possible early epidural abscess - small muscular abscess and facet joint effusion -no acute surgical indication - repeat imaging prior to discharge * HIV positive - well controlled on meds * Hyperglycemia due to infection -HgA1c normal Subjective: NO new complaints. doesn't feel better yet Objective: Vital Signs Temp Pulse Resp BP Pulse Ox 37.7 C 79 12 124/76 H 89 L 06/30/18 15:53 06/30/18 15:57 06/30/18 15:57 06/30/18 15:57 06/30/18 15:57 Laboratory Results 06/30/18 04:30 06/30/18 04:30 06/29/18 06/30/18 07/01/18 05:59 05:59 05:59 Intake Total 1000 Output Total 600 625 Balance 400 -625 pelvic/lumbar MRI - possible early epidural abscess OLD chart reviewed - was seen in ER 06/28 with suspect viral infection, but blood cultures eventually grew MSSA. He went home but then returned - Physical Exam Constitutional: no apparent distress, appears nourished, not in pain Cardiovascular: regular rate and rhythym, no murmur, rub, or gallop Respiratory: no respiratory distress, no rales or rhonchi, clear to auscultation Gastrointestinal: normoactive bowel sounds, soft, non-tender abdomen, no palpable masses Skin: no rashes or abrasions, no fluctuance, no induration Neurologic: AAOx3, sensation intact bilaterally Psychiatric: interacting appropriately, not anxious, not encephalopathic, thought process linear ICD10 Worksheet Patient Problems: Problems Problem Status Onset Bacteremia Acute Acute left-sided low back pain Acute
[2018-06-30] MEDS ORDERED: TEMAZEPAM 15 MG CAP PO ONE ×3 (17:39→22:15)
[2018-06-30 21:44] LABS: %CD3 (T CELLS) 72 % (58-86); %CD8 (T CELLS) 52 % (11-40); 4/8 RATIO 0.5 (>=0.9); CD3 (T CELLS) 631 cells/mcL (550-2202); CD4 (T CELLS) 204 cells/mcL (365-1437); CD45 TOTAL LYMPH COUNT 0.88 thou/mcL (0.82-2.84); CD8 (T CELLS) 453 cells/mcL (117-846)
[2018-06-30] MEDS: Emtricitabine/Tenofov Alafenam [Descovy 200-25 Mg Tablet] PO SCH (22:09)
[2018-07-01] MEDS: NAFCILLIN SODIUM 2 GM in D5W 100 ML IV SCH ×6 (02:05→21:13)
[2018-07-01] MEDS: oxyCODONE IR 5 MG TAB PO SCH ×4 (04:08→21:12)
[2018-07-01] MEDS: CALCIUM CARBONATE 500 MG CHEWABLE TAB PO PRN (04:58)
[2018-07-01] MEDS: IBUPROFEN 600 MG TAB PO PRN ×3 (05:00→19:54)
[2018-07-01] MEDS: SENNOSIDES/DOCUSATE SODIUM TAB PO SCH ×2 (10:11→21:15)
[2018-07-01] MEDS: ACYCLOVIR 400 MG TAB PO SCH ×2 (10:11→21:12)
[2018-07-01] MEDS: RALTEGRAVIR 400 MG TAB PO SCH ×2 (10:12→21:13)
[2018-07-01] MEDS: ETRAVIRINE PO SCH ×2 (10:14→21:15)
--- NOTE | 2018-07-01 11:27 | PCMIDPN ---
Assessment/Plan: # MSSA bacteremia L4-5 facet joint septic arthritis, early L pyomyositis of paraspinous muscles surrounding lower L spine, inflammation L4-S1 epidural space without discrete abscess. Source L foot wound. --blood cx repeated to establish clearance today --continue Nafcillin, tolerating --appreciate neurosurg input --due to spine involvement will need 8 week of IV antibiotics 08/26/18 stop date # HIV:longstanding control by report, remote h/o AIDS[facility] CD4 261, VL 38. Currently on Descovy and etravirine and raltegravir --I called Dr. Mcmanus's office at [phone] to notify of admission and requested a call back --continue ARV as above --Low CD4 count on admit not unexpected w acute illness. Did not discuss today. meds Nafcillin 2gm IV q4h micro 06/28 blood cx 2/2 MSSA 07/01 blood cx (2) pending Subjective: patient report back feels a little better denies rash or other denies neuro symptoms Objective: Vital Signs Temp Pulse Resp BP Pulse Ox 36.8 C 67 17 121/80 H 96 07/01/18 08:04 07/01/18 08:04 07/01/18 08:04 07/01/18 04:00 07/01/18 08:04 Laboratory Results 06/30/18 04:30 06/30/18 04:30 06/30/18 07/01/18 07/02/18 05:59 05:59 05:59 Intake Total 1000 1700 Output Total 600 1450 Balance 400 250 - Physical Exam General Appearance: alert, no apparent distress EENT: No thrush Respiratory: lungs clear, No accessory muscle use Neck: supple Cardiac/Chest: regular rate, rhythm Extremities: No pedal edema Abdomen: non-tender, soft Skin: No rash Neuro/Psych: alert, normal mood/affect, oriented x 3 - Time Spent With Patient Time Spent with Patient: greater than 35 minutes Time Spent with Patient: Greater than 35 minutes spent on this patients care, greater than 50% of time spent counseling, educating, and coordinating care regarding the above mentioned plan. ICD10 Worksheet Patient Problems: Problems Problem Status Onset Acute left-sided low back pain Acute Bacteremia Acute
--- NOTE | 2018-07-01 14:41 | HOSPPROG ---
Hospitalist Progress Note Assessment/Plan: 52 yo M w well controlled hiv- MSSA sepsis - source right foot wound -IV nafcillin Possible early epidural abscess - small muscular abscess and facet joint effusion -no acute surgical indication - repeat imaging prior to discharge follow HIV positive - well controlled on meds Hyperglycemia due to infection -HgA1c normal proph: add lmwh Subjective: CASE D/W DR NÚÑEZ Objective: Vital Signs Temp Pulse Resp BP Pulse Ox 36.7 C 87 13 131/82 H 94 07/01/18 12:22 07/01/18 12:22 07/01/18 12:22 07/01/18 12:22 07/01/18 12:22 Laboratory Results 06/30/18 04:30 06/30/18 04:30 06/30/18 07/01/18 07/02/18 05:59 05:59 05:59 Intake Total 1000 1700 Output Total 600 1450 Balance 400 250 - Physical Exam Constitutional: no apparent distress, appears nourished Eyes: PERRL, anicteric sclera Ears, Nose, Mouth, Throat: moist mucous membranes, hearing normal Cardiovascular: regular rate and rhythym, no murmur, rub, or gallop Respiratory: no respiratory distress, no rales or rhonchi Gastrointestinal: normoactive bowel sounds, soft, non-tender abdomen Genitourinary: no bladder fullness, No he in urethra Skin: warm, normal color Musculoskeletal: full muscle strength ICD10 Worksheet Patient Problems: Problems Problem Status Onset Acute left-sided low back pain Acute Bacteremia Acute
[2018-07-01] MEDS: ONDANSETRON 4 MG/2 ML VIAL IVP PRN (19:54)
[2018-07-01] MEDS: Emtricitabine/Tenofov Alafenam [Descovy 200-25 Mg Tablet] PO SCH (21:14)
[2018-07-01] MEDS: TEMAZEPAM 15 MG CAP PO PRN (21:37)
[2018-07-02] MEDS: NAFCILLIN SODIUM 2 GM in D5W 100 ML IV SCH ×3 (02:05→11:13)
[2018-07-02] MEDS: IBUPROFEN 600 MG TAB PO PRN ×3 (03:06→21:35)
[2018-07-02] MEDS ORDERED: LORazepam 0.5 MG TAB PO PRN (03:23)
[2018-07-02] MEDS: oxyCODONE IR 5 MG TAB PO SCH ×4 (03:31→21:12)
[2018-07-02] MEDS: ENOXAPARIN 40 MG/0.4 ML SYR SC SCH (09:00)
[2018-07-02] MEDS: ETRAVIRINE PO SCH ×2 (09:00→21:13)
[2018-07-02] MEDS: RALTEGRAVIR 400 MG TAB PO SCH ×2 (09:01→21:13)
[2018-07-02] MEDS: ACYCLOVIR 400 MG TAB PO SCH ×2 (09:01→21:12)
[2018-07-02] MEDS: SENNOSIDES/DOCUSATE SODIUM TAB PO SCH ×2 (09:02→21:12)
--- NOTE | 2018-07-02 09:48 | WOCRNPDOC ---
WOCRN Advanced Assessment Note - Skin Integrity Problem, Advanced Assess Right Dorsal Foot Dressing Type: Allevyn Life, Iodosorb Dressing Description: Clean/Dry, Intact Exudate Amount: Scant Exudate Characteristic(s): Serous Integumentary Issue Intervention: Dressing Changed, Dressing Initialed & Dated Deisi Wound Tissue: Erythema (mild) Deisi Wound Swelling: None Wound Bed Color: Yellow Wound Bed Constitution: Adhered Slough (100%) Wound Edges: Attached Site Odor: None Site Measurement - Head-to-Toe Length X Width X Depth (cm): 1.2x0.8x0.2 Skin Integrity Problem Comment: Wound cleansed with NS and gauze. Slough has softened, although only scant drainage noted on dressing. Will continue Iodosorb through the weekend and reassess for possible conservative bedside debridement beginning of next week if patient is still admitted. Wound care will round again at the beginning of next week.
--- NOTE | 2018-07-02 11:27 | PCMIDPN ---
Assessment/Plan: 1. MSSA bacteremia likely secondary to superficial right foot wound, with metastasis to L4-L5 facet joints, pyomyositis of left paraspinous muscles, and L4-S1 epidural inflammation without discrete abscess: Long conversation with patient today. He does not want to be rechallenged with nafcillin, and does not want to try a cephalosporin again. Discussed vancomycin via continuous infusion versus daptomycin. Patient prefers to be started back on daptomycin. Will use 10 milligrams/kilogram dose in the setting of central nervous system involvement. Check CK. He is not taking a statin. Warned him of drug induced myopathy and allergic hypersensitivity pneumonitis associated with this medication. He expressed understanding and wants to proceed. Of note, transthoracic echocardiogram unrevealing. 2. HIV: Continue antiretrovirals in the form of Descovy, ETV, and raltegravir. Over 25 min spent with this patient today. Subjective: Apparently nafcillin was stopped last night after patient developed an intractable headache that he felt was related temporally to nafcillin infusion. No history of migraines. He states that the headache is much better today. He is convinced this is related to an early allergic response secondary to nafcillin. Proceeded to have long conversation with patient today about antibiotics moving forward. In so far as his back pain is concerned, this is stable. No new complaints. No bowel or bladder symptoms. No shaking chills. Objective: Nafcillin 2 g IV q.4 hours date 2 T-max 37.1 degrees Vital Signs Temp Pulse Resp BP Pulse Ox 36.8 C 64 18 135/84 H 95 07/02/18 08:00 07/02/18 08:00 07/02/18 08:00 07/02/18 08:00 07/02/18 08:00 Laboratory Results 06/30/18 04:30 06/30/18 04:30 07/01/18 07/02/18 07/03/18 05:59 05:59 05:59 Intake Total 1700 750 Output Total 1450 450 Balance 250 300 Blood cultures from July 01 no growth so far Blood cultures June 2811/23 bottles MSSA. Have asked microbiology to put daptomycin mics in computer system - Physical Exam General Appearance: alert, no apparent distress EENT: pharynx normal, No thrush Respiratory: lungs clear Cardiac/Chest: regular rate, rhythm Extremities: other (Dorsum of right foot with scabbed over lesion without surrounding cellulitis.) Abdomen: non-tender, soft Skin: No rash, No embolic lesions Neuro/Psych: no motor/sensory deficits ICD10 Worksheet Patient Problems: Problems Problem Status Onset Acute left-sided low back pain Acute Bacteremia Acute
[2018-07-02 12:00] LABS: PLATELET COUNT 243 10^3/uL (150-400)
[2018-07-02 12:16] LABS: CREATINE KINASE 117 IU/L (0-224)
--- NOTE | 2018-07-02 14:14 | HOSPPROG ---
Hospitalist Progress Note Assessment/Plan: 52 yo M w well controlled hiv- MSSA sepsis - source right foot wound -changed to daptomycin- intolerant of naf Possible early epidural abscess - small muscular abscess and facet joint effusion -no acute surgical indication - repeat imaging prior to discharge follow no weakness HIV positive - well controlled on meds Hyperglycemia due to infection -HgA1c normal proph: add lmwh Subjective: case d/w dr otero Objective: Vital Signs Temp Pulse Resp BP Pulse Ox 36.8 C 64 18 135/84 H 95 07/02/18 08:00 07/02/18 08:00 07/02/18 08:00 07/02/18 08:00 07/02/18 08:00 Laboratory Results 07/02/18 11:34 07/02/18 11:34 07/01/18 07/02/18 07/03/18 05:59 05:59 05:59 Intake Total 1700 750 Output Total 1450 450 Balance 250 300 - Physical Exam Constitutional: no apparent distress, appears nourished Eyes: PERRL, anicteric sclera Ears, Nose, Mouth, Throat: moist mucous membranes, hearing normal Cardiovascular: regular rate and rhythym, no murmur, rub, or gallop Respiratory: no respiratory distress, no rales or rhonchi Gastrointestinal: normoactive bowel sounds Genitourinary: no bladder fullness, No he in urethra Skin: warm, normal color Musculoskeletal: full muscle strength Neurologic: AAOx3 ICD10 Worksheet Patient Problems: Problems Problem Status Onset Acute left-sided low back pain Acute Bacteremia Acute
[2018-07-02] MEDS: Emtricitabine/Tenofov Alafenam [Descovy 200-25 Mg Tablet] PO SCH (21:13)
[2018-07-02] MEDS: ONDANSETRON 4 MG/2 ML VIAL IVP PRN (21:44)
[2018-07-02] MEDS: TEMAZEPAM 15 MG CAP PO PRN (23:22)
[2018-07-03] MEDS: oxyCODONE IR 5 MG TAB PO SCH ×4 (03:10→21:12)
[2018-07-03] MEDS: IBUPROFEN 600 MG TAB PO PRN ×3 (07:17→21:12)
[2018-07-03] MEDS ORDERED: ALTEPLASE 2 MG VIAL IVP PRN (08:33)
--- NOTE | 2018-07-03 08:38 | PDIAF ---
- Diagnosis Diagnosis: MSSA bacteremia with septic arthritis Code Status: Full Code - Medication Management Discharge Medications: Medications to Continue on Transfer Acyclovir [Zovirax 400 mg (*)] 400 mg PO BID 06/28/18 [Last Taken 06/29/18 12:00 ] Emtricitabine/Tenofov Alafenam [Descovy 200-25 mg Tablet] 1 tab PO HS 06/28/18 [ Last Taken 06/28/18 23:30] Etravirine [Intelence] 200 mg PO BID 06/28/18 [Last Taken 06/29/18 12:00] Raltegravir [Isentress] 400 mg PO BID 06/28/18 [Last Taken 06/29/18 12:00] oxyCODONE IR [Oxycodone Ir (*)] 10 mg PO 04,10,16,22 06/28/18 [Last Taken 12:00] Androgel 1.62% 1 dalton TP DAILY 06/29/18 [Last Taken 06/29/18 12:00] Herbals/Supplements -Info Only 1 ea PO HS 06/29/18 [Last Taken Unknown] Ibuprofen [Motrin (*)] 600 mg PO BID 06/29/18 [Last Taken 06/29/18 12:00] Group Home Antibiotics: Daptomycin 770 mg IV daily Senior Chemical Engineer Antibiotic Stop Date: 08/26/18 Discharge Medications: Refer to the Discharge Home Medication list for PRN reason. PICC Care - Routine: Yes - Orders Additional Instructions: Please follow up within 3- 4 weeks of discharge with outpatient [facility] if you continue to have issues with your wounds: You may reach them at [phone] for an appointment and continued management of your wounds. Please call them [email or web address] to schedule your appointment as they fill up quickly. If before that time you have any issues, please follow up with your PCP. Change dressings to right dorsal foot every 3 days and prn. 1. Clean with ns and gauze 2. Skin prep lilliam wound 3. iodosorb gel to wound bed 4. Cover with [facility] Torab CWON - Labs/Radiology CBC w/diff Date: 07/08/18 (Fax to Dr. Faria needs weekly CBC) CMP Date: 07/08/18 (Fax to Dr. Faria needs weekly CMP) CPK Date: 07/08/18 (Fax to Dr. Faria ) - Follow Up Care Current Providers and Referrals: NONE *PRIMARY CARE P,. [Primary Care Provider] - As per Instructions Susan King NP [Certified Nurse Practioner] - (We will contact patient for an appointment in 10 days.)
--- NOTE | 2018-07-03 08:41 | PCMIDPN ---
Assessment/Plan: 1. MSSA bacteremia likely secondary to superficial right foot wound, with metastasis to L4-L5 facet joints, pyomyositis of left paraspinous muscles, and L4-S1 epidural inflammation without discrete abscess: Patient much better today; no longer has a headache. Blood cultures are negative at 48 hr. Will order PICC line for this afternoon. Hopefully can go home tomorrow. Inter agency form has been filled out, and our clinic will contact patient to be seen in the next 7-10 days. As outlined yesterday, TTE negative. Patient cleared his bacteremia quickly. Stop date for antibiotics August 26. Outlined potential adverse reactions with daptomycin yesterday with patient, which include most notably a drug induced myopathy and hypersensitivity pneumonitis. 2. HIV: Continue antiretrovirals in the form of Descovy, ETV, and raltegravir. 3. Foot wound: Healing nicely. Over 25 min spent with this patient today. 07/03/18 08:41 Subjective: In a better mood this morning. No longer has a headache. No diarrhea. Eager to go home. Objective: Daptomycin 770 mg IV daily day 2 (antibiotics day 3) No fevers Vital Signs Temp Pulse Resp BP Pulse Ox 37.7 C 59 L 16 125/80 H 92 07/03/18 08:00 07/03/18 08:00 07/03/18 08:00 07/03/18 08:00 07/03/18 08:00 Laboratory Results 07/02/18 11:34 07/02/18 11:34 07/02/18 07/03/18 07/04/18 05:59 05:59 05:59 Intake Total 750 200 Output Total 450 Balance 300 200 Blood cultures on July 01 no growth at 48 hr June 28 3/4 bottles MSSA daptomycin NENITA less than 1 - Physical Exam General Appearance: alert, no apparent distress EENT: pharynx normal, No thrush Respiratory: lungs clear Cardiac/Chest: regular rate, rhythm, No systolic murmur Abdomen: non-tender, soft Skin: other (Dime-sized excoriation over dorsum of right foot looks clean and dry with no obvious cellulitis.) ICD10 Worksheet Patient Problems: Problems Problem Status Onset Acute left-sided low back pain Acute Bacteremia Acute
[2018-07-03] MEDS: SENNOSIDES/DOCUSATE SODIUM TAB PO SCH ×2 (08:57→21:41)
[2018-07-03] MEDS: ACYCLOVIR 400 MG TAB PO SCH ×2 (08:57→21:14)
[2018-07-03] MEDS: RALTEGRAVIR 400 MG TAB PO SCH ×2 (08:58→21:13)
[2018-07-03] MEDS: ENOXAPARIN 40 MG/0.4 ML SYR SC SCH (08:58)
[2018-07-03] MEDS: ETRAVIRINE PO SCH ×2 (08:58→21:13)
[2018-07-03] MEDS: NS IV SCH (10:35)
[2018-07-03] MEDS: DAPTOMYCIN IV SCH (10:35)
--- NOTE | 2018-07-03 14:45 | HOSPPROG ---
Hospitalist Progress Note Assessment/Plan: 52 yo M w well controlled hiv- MSSA sepsis - source right foot wound -changed to daptomycin- intolerant of naf Possible early epidural abscess - small muscular abscess and facet joint effusion -no acute surgical indication - repeat imaging prior to discharge follow no weakness HIV positive - well controlled on meds Hyperglycemia due to infection -HgA1c normal proph: add lmwh dispo: awaiting picc line it is likely he will need abx changed to vancomycin given cost of outpt dapto Subjective: case d/w dr otero Objective: Vital Signs Temp Pulse Resp BP Pulse Ox 37.7 C 59 L 16 125/80 H 92 07/03/18 08:00 07/03/18 08:00 07/03/18 08:00 07/03/18 08:00 07/03/18 08:00 Laboratory Results 07/02/18 11:34 07/02/18 11:34 07/02/18 07/03/18 07/04/18 05:59 05:59 05:59 Intake Total 750 200 Output Total 450 Balance 300 200 - Physical Exam Constitutional: no apparent distress, appears nourished Eyes: PERRL, anicteric sclera Ears, Nose, Mouth, Throat: moist mucous membranes, hearing normal Cardiovascular: regular rate and rhythym, no murmur, rub, or gallop Respiratory: no respiratory distress, no rales or rhonchi Gastrointestinal: normoactive bowel sounds, soft, non-tender abdomen Genitourinary: no bladder fullness, he in urethra Skin: warm, normal color, No no induration Musculoskeletal: full muscle strength Neurologic: AAOx3 Psychiatric: interacting appropriately, not anxious Lymph, Heme, Immunologic: no cervical LAD ICD10 Worksheet Patient Problems: Problems Problem Status Onset Acute left-sided low back pain Acute Bacteremia Acute
--- NOTE | 2018-07-03 16:10 | ASMTCMCOM ---
CM Note CM Note Notes: Spoke w/pt and MD, pt needs 8 weeks IV abx. Pt wishes to do home infusion but at the moment he does not have Medicare part D and Daptomycin would be around $500/day. Discussed with , if abx was changed to Vanco, would be around $58/day. Per pt he still can't afford that, he is on a fixed income. If pt does out pt infusion it will be covered by insurance, pt agrees to out pt infusion. States he [place] very close to hospital and can easily manage that. Advised pt once he gets his Medicare part D reinstated, he could try and change to home infusion. CM scheduled pt to start FridayJul 05 at 1:30. to send orders. DC Plan: Out pt infusion Date Signed: 07/03/2018 04:02 PM Electronically Signed By:Vivi Ibarra RN
[2018-07-03] MEDS: Emtricitabine/Tenofov Alafenam [Descovy 200-25 Mg Tablet] PO SCH (21:14)
[2018-07-03] MEDS: TEMAZEPAM 15 MG CAP PO PRN (21:50)
[2018-07-04] MEDS: oxyCODONE IR 5 MG TAB PO SCH ×2 (03:00→08:15)
[2018-07-04 07:14] VITALS: BP 145/84
[2018-07-04] MEDS: ACYCLOVIR 400 MG TAB PO SCH (08:15)
[2018-07-04] MEDS: ENOXAPARIN 40 MG/0.4 ML SYR SC SCH (08:15)
[2018-07-04] MEDS: RALTEGRAVIR 400 MG TAB PO SCH (08:16)
[2018-07-04] MEDS: SENNOSIDES/DOCUSATE SODIUM TAB PO SCH (08:16)
[2018-07-04] MEDS: IBUPROFEN 600 MG TAB PO PRN (08:16)
[2018-07-04] MEDS: ETRAVIRINE PO SCH (08:16)
[2018-07-04] MEDS: DAPTOMYCIN IV SCH (10:42)
[2018-07-04] MEDS: NS IV SCH (10:42)
[2018-07-04 12:02] LABS: PLATELET COUNT 329 10^3/uL (150-400)
--- NOTE | 2018-07-04 12:18 | ASMTLACE ---
LACE Length of stay for Answers: 4-6 days current admission Acuity / Level of Answers: Yes Care: Did the patient have an inpatient admission? Comorbidities - select Answers: AIDS all that apply Opioid dependence / Chronic pain # of Emergency department Answers: 1-2 visits in the last 6 months Score: 16 Date Signed: 07/04/2018 12:17 PM Electronically Signed By:VALENTIN Minor
--- NOTE | 2018-07-04 12:26 | ASDISCHSUM ---
Discharge Information Plan Status:IV ABX/Infusion Medically Cleared to Leave:07/04/2018 Discharge Date:07/04/2018 11:39 AM CM D/C Disposition:Home, Routine, Self-Care ADT D/C Disposition:Home, Routine, Self-Care Projected Discharge Date:07/03/2018 11:00 AM Transportation at D/C:Family Discharge Delay Reason: Follow-Up Date:07/03/2018 11:00 AM Discharge Slot: Final Diagnosis: Placement Information Referral Type:Home Infusion Referral ID:[id number] Provider Name: Address 1: Phone Number: Address 2: Fax Number: City: Selection Factors: State: Patient Contact Information Contact Name:MARCELO Relationship:Life Partner Address:[address] Work Phone: [facility] Phone: [facility] Code:[place] [address] Email: Financial Information Financial Class:Medicare Primary Plan Desc:MEDICARE INPATIENT Primary Plan Number:[id number] Secondary Plan Desc: Secondary Plan Number: Assessment Information LACE LACE Length of stay for Answers: 4-6 days current admission Acuity / Level of Answers: Yes Care: Did the patient have an inpatient admission? Comorbidities - select Answers: AIDS all that apply Opioid dependence / Chronic pain # of Emergency department Answers: 1-2 visits in the last 6 months Score: 16 Date Signed: 07/04/2018 12:17 PM Electronically Signed By:VALENTIN Minor [facility] Initial CM Assessment Living Arrangements What is your living Answers: With Partner arrangement? Who do you live with? Type Of Residence What kind of residence do Answers: House you live in? Discharge Plan Comments Coordination Status Comments Notes: Patient is a 52yo single male who presents with acute MSSA bacteremia in the setting of HIV. He also has hyperglycemia, acute. Patient's partner Marshall is his MDPOA. PT and wound care ordered. D/C needs TBD. CM will follow. Date Signed: 06/30/2018 10:16 AM Electronically Signed By:Natalee Schwarz LCSW [facility] CM Progress Note CM Note CM Note Notes: Spoke w/pt and MD, pt needs 8 weeks IV abx. Pt wishes to do home infusion but at the moment he does not have Medicare part D and Daptomycin would be around $500/day. Discussed with MD, if abx was changed to Vanco, would be around $58/day. Per pt he still can't afford that, he is on a fixed income. If pt does out pt infusion it will be covered by insurance, pt agrees to out pt infusion. States he [place] very close to hospital and can easily manage that. Advised pt once he gets his Medicare part D reinstated, he could try and change to home infusion. CM scheduled pt to start FridayJul 05 at 1:30. to send orders. DC Plan: Out pt infusion Date Signed: 07/03/2018 04:02 PM Electronically Signed By:Vivi Ibarra RN Case Management Discharge Plan Note Case Management Discharge Discharge Order Complete? Answers: Yes Patient to Obtain Answers: Independently Medications Transportation Arranged Answers: Family/Friends Family Notified Answers: Yes Discharge Comments Notes: Pt was admitted with MSSA bacteremia. He has a hx of HIV/AIDS. He will continue IV ABX through [facility] starting tomorrow at 1:30. He understands he will sign in at the ED kiosk the first visit only. He is discharging home with his partner. Date Signed: 07/04/2018 12:23 PM Electronically Signed By:VALENTIN Minor Intervention Information
--- NOTE | 2018-07-05 04:27 | GDS ---
SERVICE: [facility] hospitalist. CONSULTS: 1. Infectious Disease. 2. Neurosurgery. 3. Wound Care. H AND P: Please see previously dictated note by Dr. Ramirez. ADMISSION DIAGNOSES: 1. Methicillin-susceptible Staphylococcus aureus bacteremia. 2. Hyperglycemia. 3. HIV DISCHARGE DIAGNOSES: 1. Methicillin-susceptible Staphylococcus aureus bacteremia, right foot wound source, possible early epidural abscess. 2. HIV 3. Hyperglycemia, normal hemoglobin A1c. PROCEDURES: PICC line placed on 07/03/2018. MRI lumbar spine showing intermuscular edema, small intramuscular abscess formation, inflation of the epidural and lumbar canal at L4-S1 without abscess, broad based disk bulge, central canal stenosis, severe bilateral neuroforaminal stenosis at L4-L5. DAVID. HOSPITAL COURSE: The patient was admitted to the hospital because of fever, chills, back pain that had been evaluated in the ER the day previously, at which time a blood culture was drawn and it returned positive for MSSA. He was called back to the emergency department and admitted for IV therapy and treatment. He had an MRI of his spine that is detailed above and Neurosurgery was asked to evaluate him. They did not recommend any surgical intervention at this time, but they did recommend repeating imaging. He was initially started on daptomycin, but this was changed to nafcillin IV by Infectious Disease. He had repeat blood cultures which were negative after antibiotic treatment. He also had a urine culture which was negative. He had a transesophageal echo to evaluate for any heart infection or lesions which showed normal left ventricle, normal global EF, no regional wall abnormalities and no vegetations on any of his valves. He had mild mitral valve regurg. Wound Care was asked to evaluate wound on the dorsum of his right foot and, over the course of his stay, the wound began to heal and improve. After a few days of IV nafcillin, he began to have some side effects, and discussed with Infectious Disease restarting daptomycin which they agreed to. He has tolerated the daptomycin now for several days without any side effects. He had his HIV labs checked and had an absolute CD3 count of 631, absolute CD4 count of 204, absolute CD8 count of 453 , absolute lymphs 0.88, and T helper suppressor ratio of 0.5. His white cell count remained within the normal range throughout his stay. He was noted to have some mild anemia with a hemoglobin at admission of 12.5, at discharge 11.5 , with a normal MCV. No specific evaluation was done of his anemia while he was here and this should be carried out with his primary care provider as an outpatient. Of note, he did have hemoglobin A1c checked because he had occasional elevated blood sugars up to the 190s, but it was in the normal range at 5.2. On the day of discharge, pain was well controlled. He was tolerating diet well and he had no adverse effects from IV daptomycin. After consultation with Dr. Faria of Infectious Disease, discharge was processed and he will return daily for daptomycin infusion at [facility] outpatient infusion area. He is followed for HIV by Dr. Mcmanus (he only sees him once a year). He does not have a local primary care provider, but has seen a local office once and will go back there to establish primary care. He agrees to be seen by Wound Care and Infect[facility] Disease [facility] here while receiving IV outpatient therapies. He will schedule with Dr. Mcmanus in the future for his routine HIV care. Dr Faria confirmed that repeat back imaging can be arranged as an outpatient. Tmax was 102.9 on 06/30/2018 at 7 AM, afebrile throughout stay otherwise. DISCHARGE MEDICATIONS: No new prescriptions were given to him. He is to continue with his antivirals, acyclovir, AndroGel, and ibuprofen. DISCHARGE FOLLOW UP: He has been instructed to call for an appointment with Susan King in the Infectious Disease Clinic and also with the Outpatient [facility] in 3 to 4 weeks. He should call his primary HIV specialist , Kadeem Mcmanus, in [place] for an appointment within the next 2 to 3 weeks and strongly recommend seeing a primary care provider within the next few weeks also. DISCHARGE INSTRUCTIONS: Dressing changes were reviewed with him by Wound Care previously and he is to change his dressings every 3 days per their recommendations. He will need outpatient evaluation of anemia as above. He also should have a repeat MRI to ensure that pyomyositis and epidural inflammation have resolved. If at any time he has a fever, increased back pain , increased purulence from his wound or any other concerns, he should return immediately to the emergency department. /[id number]/MODL MTDD
== END 2018-07-04 11:39 | disposition home or self-care (01) | DRG 95 ==
LOC: F3E 16:36 → EEVIPCON 16:36 → F3E 19:41
PROVIDERS: ADMIT Internal Medicine; ATTEND Internal Medicine
PROC: 02H633Z Insertion of Infusion Device into Right Atrium, Percutaneous Approach (ICD-10-PCS; principal; 2018-07-03)
DX: G06.2 Extradural and subdural abscess, unspecified (principal); M60.08 Infective myositis, other site; R78.81 Bacteremia; Z21 Asymptomatic human immunodeficiency virus [HIV] infection status; B95.61 Methicillin susceptible Staphylococcus aureus infection as the cause of diseases classified elsewhere; R73.9 Hyperglycemia, unspecified; M51.26 Other intervertebral disc displacement, lumbar region
CPT/HCPCS: 86359-90; 86360-90; 96374; A9585; C1751; J0878; J1650; J2270; J2405; Q9967

== ENCOUNTER → 2018-07-10 | Outpatient (CLI) | payer OTHER ==
[~2018-07-10] MED LIST: GADOBUTROL 10 ML VIAL IVP ONE
== END ==
LOC: FIMAGING 17:45
PROVIDERS: ATTEND Nurse Practitioner
DX: G06.1 Intraspinal abscess and granuloma (principal); M48.061 Spinal stenosis, lumbar region without neurogenic claudication; M43.16 Spondylolisthesis, lumbar region; M53.86 Other specified dorsopathies, lumbar region; M46.26 Osteomyelitis of vertebra, lumbar region
CPT/HCPCS: 72158; 72197; A9585

== ENCOUNTER → 2018-08-27 | Outpatient (CLI) | payer OTHER | LOC: FIMAGING 13:44 | PROVIDERS: ATTEND Internal Medicine Infectious Disease | DX: R78.81 Bacteremia (principal); M60.08 Infective myositis, other site; G06.2 Extradural and subdural abscess, unspecified; M46.86 Other specified inflammatory spondylopathies, lumbar region; M46.87 Other specified inflammatory spondylopathies, lumbosacral region; M48.061 Spinal stenosis, lumbar region without neurogenic claudication | CPT/HCPCS: 72158; A9585 ==